=== PATIENT | male | born 1950 | race African-American/Black ===

== ENCOUNTER → 2017-07-26 | Outpatient (CLI) | payer MEDICARE, BC ==
--- NOTE | 2017-07-26 12:58 | Diagnostic Imaging Report ---
PROCEDURE:BIOPSY THYROID FNA COMPARISON:Thyroid ultrasound 08/02/2016 from outside hospital. INDICATIONS:Left Thyroid Nodule FINDINGS: Written and verbal consent were obtained. Patient was placed supine. Preliminary focused sonographic evaluation demonstrated a nodule in the superior pole the left thyroid lobe. A safe entry route was identified and the overlying skin was prepped and draped in usual sterile fashion. Lidocaine 1% was used for local pain control. Utilizing direct sonographic guidance, fine needle aspiration biopsy samples x5 were obtained with 25 gauge needles. The specimens were given to pathology, who was at bedside. The pathologist determined the specimens to be of proper saline repeat for diagnosis. Upon completion of the procedure, no hematoma was noted. A sterile dressing was applied. The patient tolerated the procedure well, and there were no immediate post-procedural complications. CONCLUSION: Successful ultrasound-guided fine needle aspiration biopsy sample of a left thyroid lobe nodule. Dictated by: Prince Mix M.D. on 07/26/2017 at 12:57 Electronically approved by: Prince Mix M.D. on 07/26/2017 at 12:57
--- NOTE | 2017-07-26 13:04 | Diagnostic Imaging Report ---
PROCEDURE:ULTRASOUND GUIDANCE FOR PROCEDURE COMPARISON:None. INDICATIONS: Left Thyroid Nodule CONCLUSION: Successful ultrasound-guided thyroid nodule biopsy. Dictated by: Prince Mix M.D. on 07/26/2017 at 13:03 Electronically approved by: Prince Mix M.D. on 07/26/2017 at 13:03
== END ==
LOC: US 09:32
PROVIDERS: ATTEND Otolaryngology
DX: E04.2 Nontoxic multinodular goiter (principal)
CPT/HCPCS: 10022; 76942; 88172; 88173; 88305